=== PATIENT | female | born 1980 | race African-American/Black ===

== ENCOUNTER 2018-09-01 06:23 | Day surgery (SDC) | payer OTHER ==
[~2018-09-01] VITALS: Ht 162.6 cm; Wt 76.2 kg
[2018-09-01] MEDS ORDERED: SEVOFLURANE 61 TO 120 MINUTES. IH ONE (06:51)
[2018-09-01] MEDS ORDERED: GLYCOPYRROLATE 1 MG/5 ML VIAL. ONE (06:52)
[2018-09-01] MEDS ORDERED: ROCURONIUM 50 MG/5 ML VIAL. ONE (06:52)
[2018-09-01] MEDS ORDERED: LIDOCAINE 2% PF Vial for OR 5 ML VIAL. ONE (06:52)
[2018-09-01] MEDS ORDERED: fentaNYL PF VIAL 100 MCG/2 ML VIAL ONE (06:52)
[2018-09-01] MEDS ORDERED: NEOSTIGMINE METHYLSULFATE 5 MG/5 ML SYRINGE. ONE (06:52)
[2018-09-01] MEDS ORDERED: MIDAZOLAM HCL/PF 2 MG/2 ML VIAL. ONE (06:52)
[2018-09-01] MEDS ORDERED: ONDANSETRON PF 4 MG/2 ML VIAL. ONE (06:53)
[2018-09-01] MEDS ORDERED: KETOROLAC 30 MG/ML INJ FOR OR. INJ ONE (06:53)
[2018-09-01] MEDS ORDERED: CHOL10003 PO (06:53)
[2018-09-01] MEDS ORDERED: PNV1TABL25 PO (06:53)
[2018-09-01] MEDS ORDERED: PROPOFOL 20 ML IV ONE (06:53)
[2018-09-01] MEDS ORDERED: DEXAMETHASONE SOD PHOS 20 MG/5 ML VIAL. ONE (06:53)
[2018-09-01] MEDS ORDERED: DIPH25CA58 PO (06:54)
[2018-09-01] MEDS ORDERED: ONDA4TAB7 PO (06:54)
[2018-09-01] MEDS: IV RINGERS,LACTATED 1000ML 1,000 ML IV SCH ×2 (06:56→10:30)
[2018-09-01] MEDS ORDERED: fentaNYL PF VIAL 100 MCG/2 ML VIAL IV PRN (07:00)
[2018-09-01] MEDS ORDERED: ONDANSETRON PF 4 MG/2 ML VIAL. IV PRN (07:00)
[2018-09-01] MEDS ORDERED: LIDOCAINE 1% PF 2 ML VIAL. ID PRN (07:00)
[2018-09-01] MEDS ORDERED: HYDROmorphone 2 MG/ML VIAL IV PRN (07:00)
[2018-09-01 07:16] LABS: U PREG PATIENT NEGATIVE (NEG)
[2018-09-01] MEDS ORDERED: BUPIVAC MPF-EPI 0.5%-1:200000 30 ML VIAL. ONE (07:44)
[2018-09-01] MEDS ORDERED: ESMOLOL 100 MG/10 ML VIAL. IV ONE (09:00)
--- NOTE | 2018-09-01 09:24 | PDOC4 ---
Operative Note Operative Note Date: 09/01/2018 Preoperative diagnosis: Incisional ventral hernia Postoperative diagnosis: Same Procedure: Robotic-assisted laparoscopic ventral hernia repair with mesh Surgeon: Joel Specimen: None Dictation: Patient is a 38-year-old female had undergone a laparoscopic appendectomy subsequent had a and developed a hernia at the umbilical incision site. Procedure of robotic-assisted laparoscopic ventral hernia repair with mesh was explained to the patient detail was benefits were also discussed including bleeding infection injury to intra-abdominal contents possibly necessitating further or open operations. Patient seemed understanding gave both verbal and written consent had procedure performed. Patient was taken to the operating room placed in supine position general anesthesia was initiated once patient was asleep and intubated her abdomen was prepped and draped usual sterile fashion using ChloraPrep and area in the left upper quadrant was injected with quarter percent Marcaine with epinephrine incisions made lead blade scalpel and using a 5 mm Visiport was placed under direct visualization into the peritoneal cavity a pneumoperitoneum was then achieved. Abdomen was inspected no other at maladies were noted hernia was noted at the anterior abdominal wall. Da Phan port 8 mm was placed in the left lower quadrant under direct visualization the second 8 mm da Phan port for the camera was placed in the left mid abdomen under direct visualization and the 5 mm Visiport was replaced with a 8 mm da Phan port. The da Phan robot was brought in and docked all port sites surgeon went to the robotic console using grasper and needle courtesy van driver the hernia was closed with a running 20V lock permanent suture. Ventral light ST mesh was then placed over the hernia defect this was sewn into place with a 20V lock absorbable suture. Once this was complete the da Phan robot was undocked ports were all removed the pneumoperitoneum was reduced all port sites was closed with 4 septic or Monocryl Mastisol Steri-Strips and island dressings were applied. Patient was waken next made in the operating room taken recovery in stable condition all sponge instrument needle counts listed as correct estimate blood loss 5 mL BRENDON NIELSEN MD Sep 01, 2018 09:24
--- NOTE | 2018-09-01 09:24 | DISCH ---
DISCHARGE INSTRUCTIONS Condition on Discharge Condition on Discharge: Stable Activity After Discharge Activity Instructions for Disc: Avoid exertion Other activity instructions: no lifting more than 20 pounds for 2 weeks Diet after Discharge Diet after Discharge: Regular Wound Incision Care Other wound/incision instructi: May shower in 24 hours Contacting the [facility] after DC Call your doctor for: If your condition worsens Follow-Up Follow up with: Dr. Nielsen in 2 weeks BRENDON NIELSEN MD Sep 01, 2018 09:24
[2018-09-01] MEDS: PROCHLORPERAZINE 10 MG/2 ML VIAL. IV PRN ×2 (09:36→09:52)
[2018-09-01] MEDS: fentaNYL PF VIAL 100 MCG/2 ML VIAL IV PRN ×2 (09:37→09:52)
[2018-09-01] MEDS ORDERED: OXYC-323 PO (09:59)
[2018-09-01] MEDS ORDERED: oxyCODONE/APAP 5/325 1 TAB TABLET PO ONE (10:00)
[2018-09-01] MEDS: MORPHINE SULFATE 2 MG/ML VIAL. IV PRN ×2 (10:30→10:43)
[2018-09-01 10:40] VITALS: BP 96/68
== END 2018-09-01 11:27 | disposition home or self-care (01) ==
LOC: SURG 06:23
PROVIDERS: ATTEND Surgery
DX: K43.2 Incisional hernia without obstruction or gangrene (principal); G43.909 Migraine, unspecified, not intractable, without status migrainosus; Z90.49 Acquired absence of other specified parts of digestive tract; Z98.51 Tubal ligation status; Z87.891 Personal history of nicotine dependence; Z79.899 Other long term (current) drug therapy
CPT/HCPCS: 49654; 81025; A7015; C1781; J0690; J0780; J1100; J1885; J2001; J2250; J2270; J2405; J2704; J2710; J3010; J3490; J7120; S2900